=== PATIENT | female | born 1990 | race Caucasian/White ===

== ENCOUNTER 2020-09-07 14:38 | Emergency (ER) | payer MEDICAID, SELFPAY ==
[2020-09-07 14:51] VITALS: BP 117/66; PULSE 85; RESP 16; TEMP 36.9; O2SAT 99
--- NOTE | 2020-09-07 15:15 | ED.GENADULT ---
HPI - General Adult General Chief complaint: Skin/Abscess/Foreign Body Stated complaint: Allergic Reaction Time Seen by Provider: 09/07/20 15:15 Source: patient and RN notes reviewed Mode of arrival: ambulatory Limitations: no limitations History of Present Illness HPI narrative: 30 year old female who presents to [facility] care with complaints of upper and lower lips swelling since around 1115 today. Patient states that she ate a peanut butter cup about 1030 and then noticed this swelling of her lips approximately 45 minutes later. Patient denies any difficulty with breathing or any difficulty swallowing. Patient states that she is unaware of any known peanut or any other food allergies. Patient denies any other new medications, lotions, makeup, soaps or fragrance products.Patient denies any other ill symptoms or recent fevers. MD complaint: allergic reaction Onset (ago): hour(s) (1030 this morning) Location: mouth (lips) Radiation: non-radiation Severity: moderate Associated symptoms: denies other symptoms Treatments prior to arrival: none Related Data Home Medications Medication Instructions Recorded Confirmed topiramate 25 mg PO DAILY 09/07/20 09/07/20 Allergies Allergy/AdvReac Type Severity Reaction Status Date / Time nortriptyline AdvReac Abdominal Verified 09/07/20 15:05 Pain Review of Systems Review of Systems: Narrative: CONSTITUTIONAL: Denies fever, chills, or sweats. EYES: Denies visual changes, redness, or discharge. ENT: Denies rhinorrhea, congestion, sore throat, or otalgia reports swelling of lips CARDIOVASCULAR: Denies chest pain, palpitations, or edema. RESPIRATORY: Denies cough or dyspnea. GASTROINTESTINAL: Denies abdominal pain, nausea, vomiting, or diarrhea. GENITOURINARY: Denies dysuria or hematuria. SKIN: Denies rash or itching. MUSCULOSKELETAL: Denies back pain, joint pain, or myalgia. NEUROLOGIC: Denies headache, numbness, or weakness. PSYCHIATRIC: Denies anxiety or depression. All systems reviewed & are unremarkable except as noted in HPI and below PMFSH Past Medical History Medical History (Updated 09/09/20 @ 11:09 by Zuleyka Jennings NP) Migraines Surgical History Surgical History (Updated 09/09/20 @ 11:03 by Zuleyka Jennings NP) No pertinent past surgical history Social History Social History (Updated 09/09/20 @ 11:06 by Zuleyka Jennings NP) Smoking status: Never smoker Alcohol intake: unknown Substance use: unknown Living arrangements: with family Gender identity (if verbalized by the patient): Female Exam Narrative: Exam Narrative: GENERAL: Well-appearing, well-nourished, and in no acute distress. HEAD: Normocephalic, atraumatic. EYES: PERRLA and EOMI. ENT: Nares clear, no rhinorrhea or epistaxis. Mucous membranes moist.TM's normal with good light reflex, throat red no swelling noted, tonsils red and enlarged, upper and lower lips swollen on face no Antonio angina noted or any difficulty with swallowing. NECK: Supple.no lymphadenopathy CHEST: Clear to auscultation. No respiratory distress.SAO2 99% on room air HEART: Regular rate and rhythm. No murmur heard. Normal peripheral pulses. ABDOMEN: Soft, nontender, nondistended, normal active bowel sounds. EXTREMITIES: Normal range of motion. No edema. SKIN: Warm, dry, no rash. NEURO: No focal deficits. Alert and oriented x3. Course Vital Signs Vital signs: Vital Signs Temperature 36.9 C 09/07/20 14:51 Pulse Rate 85 09/07/20 14:51 Respiratory Rate 16 09/07/20 14:51 Blood Pressure 117/66 09/07/20 14:51 Pulse Oximetry 99 09/07/20 14:51 Temperature 36.9 C 09/07/20 14:51 Pulse Rate 85 09/07/20 14:51 Respiratory Rate 16 09/07/20 14:51 Blood Pressure 117/66 09/07/20 14:51 Pulse Oximetry 99 09/07/20 14:51 Medical Decision Making MDM Narrative Medical decision making narrative: Patient received Methylprednisolone 80 mg injection in clinic today with no adverse reactio
[2020-09-07] MEDS: methylPREDNISolone ACETATE 80 MG/ML VIAL IM (15:47)
== END 2020-09-07 16:13 | disposition home or self-care (01) ==
PROVIDERS: Emergency Provider Registered Nurse; PCP Internal Medicine
DX: T78.1XXA Other adverse food reactions, not elsewhere classified, initial encounter (principal)
CPT/HCPCS: 87081; 87880; 96372; 99213; G0463; J1040

== ENCOUNTER 2023-06-06 13:29 | Emergency (ER) | payer OTHER, SELFPAY ==
--- NOTE | 2023-06-06 13:41 | ED.ABDPAIN ---
HPI - Abdominal Pain General Chief Complaint: Abdominal Pain Stated Complaint: Low abdominal Pain/Right Side Time Seen by Provider: 06/06/23 13:45 Source: patient, RN notes reviewed and old records reviewed Mode of arrival: ambulatory Limitations: no limitations History of Present Illness HPI narrative: 33-year-old female presents to the [facility] with complaints of right lower back, right lower quadrant pain that has increased over the last 2 days. Denies any fevers. Does states she has been very nauseous. Denies any urinary symptoms, frequency, urgency or burning. Denies any abdominal surgeries in the past Onset (ago): day(s) (2) Pain Consistency: constant Location: RLQ Exacerbating factors: movement Relieving factors: nothing Associated symptoms: nausea Related Data Patient : No Home Medications Medication Instructions Recorded Confirmed topiramate 25 mg tablet 25 mg PO DAILY 09/07/20 09/07/20 Allergies Allergy/AdvReac Type Severity Reaction Status Date / Time Tricyclic Antidepressants Allergy Hives Verified 06/06/23 13:45 and Tricy nortriptyline AdvReac Abdominal Verified 06/06/23 13:45 Pain Review of Systems Review of Systems: All systems reviewed & are unremarkable except as noted in HPI and below Constitutional: Constitutional: Reports no additional constitutional complaints Eyes: Eyes: Reports no additional eye complaints ENT: Reports system reviewed and no additional complaints, except as documented Cardiovascular: Cardiovascular: Reports no additional cardiovascular complaints, Denies chest pain and Denies dyspnea Respiratory: Respiratory: Reports no additional respiratory complaints, Denies chest congestion, Denies cough and Denies dyspnea Gastrointestinal: Gastrointestinal: Reports as per HPI, Reports abdominal pain (Right lower quadrant), Denies nausea and Denies vomiting Musculoskeletal: Musculoskeletal: Reports no additional musculoskeletal complaints Integumentary/Breasts: Skin/Breast: Reports system reviewed and no additional complaints, except as docu Neurologic: Reports system reviewed and no additional complaints, except as documented Psychiatric: Psychiatric: Reports no additional psychiatric complaints Allergic/Immunologic: Allergic/Immunologic: Reports no additional allergic/immunologic complaints PMFSH Past Medical History Medical History Migraines Surgical History Surgical History No pertinent past surgical history Social History Social History (Reviewed 06/06/23 @ 13:59 by MICKY Alvarez Smoking status: Never smoker Alcohol intake: unknown Substance use: unknown Living arrangements: with family Gender identity (if verbalized by the patient): Female Comments At the time of my signature, I reviewed and agree with the nursing past medical, surgical, social, and family history. There is no relevant family history pertinent to the patient complaint. Exam Const: General: cooperative, healthy appearing, comfortable, no acute distress, well developed, alert and well nourished Nutritional Appearance: well nourished Orientation/consciousness: patient oriented x3 Limitations: no limitations HENMT: Head: normal to inspection Ears: hearing grossly normal bilaterally and external ears normal Face/Nose/Sinus: Normal external nose present, Normal nares present, Normal nasal mucous membranes and turbinates present and normal facial exam Face and sinus: normal facial exam Eyes: General: appearance normal, both eyes and all related structures Alignment and Position: alignment normal Periorbital: periorbital findings normal Pupils: Equal, round and reactive pupils present EOM: EOMs intact bilaterally Neck: Neck: normal visual inspection, full ROM, no lymphadenopathy and no meningeal signs Chest: Chest palpation & inspection: lary
[2023-06-06 13:45] VITALS: BP 126/81; PULSE 86; RESP 16; TEMP 36.5; O2SAT 100
== END 2023-06-06 13:59 | disposition short-term general hospital (02) ==
PROVIDERS: Emergency Provider Nurse Practitioner
DX: R10.31 Right lower quadrant pain (principal)
CPT/HCPCS: 81003; 87086; 99213; G0463

== ENCOUNTER 2023-06-06 14:26 | Emergency (ER) | payer OTHER, SELFPAY ==
--- NOTE | ~2023-06-06 | CT_ITS ---
EXAMINATION: CT abdomen pelvis wo con DATE: 06/06/2023 17:31 INDICATION: Right lower quadrant pain TECHNIQUE: Computed tomography (CT) of the abdomen and pelvis was performed without intravenous contr ast. The dose-length product was 454.86 mGy-cm. Automated exposure control and iterative reconstructi on technique were employed. COMPARISON: None. FINDINGS: Lung bases are unremarkable. Heart size normal. No significant pleural or pericardial effus ion. No significant vascular abnormality. No lymphadenopathy. Normal-appearing appendix. The liver, s pleen, pancreas, adrenal glands and kidneys are unremarkable for noncontrast CT. Gallbladder is prese nt. No renal stones or hydronephrosis. Uterus appears enlarged. No abnormal pelvic masses or fluid co llections. Nonobstructive bowel pattern. No free air or free fluid. No evidence for diverticulitis. IMPRESSION: 1. No acute abdominal abnormality. Reviewed, dictated and finalized at location A.
[2023-06-06 14:29] VITALS: BP 139/73; PULSE 70; RESP 16; TEMP 36.3; O2SAT 100
[2023-06-06 14:47] LABS: Basophils Absolute Auto 0.1 K/mm3 (0.0-0.1); Basophils Percent Auto 0.7 % (0.2-1.2); Eosinophils Absolute Auto 0.3 K/mm3 (0-0.3); Eosinophils Percent Auto 3.2 % (0-4.4); Hematocrit 41.2 % (37.0-47.0); Hemoglobin 13.9 g/dL (12.0-15.0); Immature Granulocyte Absolute 0.02 K/mm3 (0.00-0.031); Immature Granulocyte Percent A 0.2 % (0-0.5); Lymphocytes Absolute Auto 2.73 K/mm3 (0.9-3.2); Lymphocytes Percent Auto 32.7 % (18.3-44.2); Mean Corpuscular HGB Conc 33.7 g/dl (32-36); Mean Corpuscular Hemoglobin 30.9 pg (26-34); Mean Corpuscular Volume 91.6 fl (80-100); Mean Platelet Volume 9.2 fl (7.4-10.4); Monocytes Absolute Auto 0.9 K/mm3 (0.1-0.6); Monocytes Percent Auto 11.2 % (2.6-8.5); Neutrophils Absolute Auto 4.3 K/mm3 (1.3-6.7); Platelet Count Result 314 k/mm3 (150-375); Red Cell Distribution Width 12.6 % (11.5-14.5); White Blood Count 8.3 K/mm3 (4.5-10.0)
[2023-06-06 14:52] LABS: Appearance Urine Turbid (Clear); Bacteria Urine 1+ /hpf; Bilirubin Urine Negative (Negative); Blood Urine Trace (Negative); Color Urine Yellow (Yellow); Glucose Urine UA Negative (Negative); Ketones Urine Negative (Negative); Leukocyte Esterase Ur Negative LEU/UL (Negative); Nitrate Urine Negative (Negative); Non Pathogenic Casts 0-2; Protein Urine Negative (Negative); RBC Urine 0-2 /hpf (0-2); Specific Grav Ur 1.015 (1.001-1.035); Squamous Epithelial Cell Urine Many /hpf (Few); Urobilinogen Urine 0.2 mg/dL (<2.0); pH Urine 5.5 (5.0-9.0)
[2023-06-06 14:56] LABS: Add Urine Microscopic? YES
[2023-06-06 14:57] LABS: Alanine Aminotransferase 17 U/L (6-35); Albumin Level 4.6 g/dL (3.5-5.1); Alkaline Phosphatase 58 U/L (38-126); Anion Gap 9 mmol/L (8-16); Aspartate Amino Transferase 22 U/L (14-36); Bilirubin,Total 0.5 mg/dL (0.2-1.3); Blood Urea Nitrogen 11 mg/dL (7-17); Carbon Dioxide 24 mmol/L (22-30); Chloride 104 mmol/L (98-107); Estimated CRCL calculation 89 ml/min; Estimated Glomerular Filt Rate > 60; Glucose 85 mg/dL (65-110); Lipase 36 U/L (23-300); Sodium 137 mmol/L (137-145)
[2023-06-06 15:04] VITALS: BP 139/73; PULSE 70; RESP 16; TEMP 36.3; O2SAT 100
--- NOTE | 2023-06-06 16:15 | ED.ABDPAIN ---
HPI - Abdominal Pain General Chief Complaint: Abdominal Pain Stated Complaint: Right lower quadrant pain Time Seen by Provider: 06/06/23 16:10 History of Present Illness HPI narrative: Patient is a 33-year-old female presenting with abdominal pain. Patient states that for the last 2 days she has had right flank pain that radiates into her right lower abdomen. Reports nausea but no vomiting. She went to urgent care earlier and urinalysis was normal so she was advised to come here for further evaluation. Denies fevers or chills, chest pain, shortness of breath, hematuria, dysuria. States that she is due to start her menstrual cycle next week. Related Data Home Medications Medication Instructions Recorded Confirmed topiramate 25 mg tablet 25 mg PO DAILY 09/07/20 09/07/20 Allergies Allergy/AdvReac Type Severity Reaction Status Date / Time Tricyclic Antidepressants Allergy Hives Verified 06/06/23 16:12 and Tricy nortriptyline AdvReac Abdominal Verified 06/06/23 16:12 Pain Review of Systems Review of Systems: All systems reviewed & are unremarkable except as noted in HPI and below PMFSH Past Medical History Medical History Migraines Surgical History Surgical History No pertinent past surgical history Social History Social History Smoking status: Never smoker Alcohol intake: unknown Substance use: unknown Living arrangements: with family Gender identity (if verbalized by the patient): Female Exam Narrative: GENERAL: Well-appearing, well-nourished, and in no acute distress. Pleasant and cooperative HEAD: Normocephalic, atraumatic. EYES: PERRLA and EOMI. ENT: Nares clear, no rhinorrhea or epistaxis. Mucous membranes moist. NECK: Supple. CHEST: Clear to auscultation. No respiratory distress. HEART: Regular rate and rhythm ABDOMEN: Soft, +RLQ tenderness, +R CVA tenderness, no guarding or rebound EXTREMITIES: Normal range of motion. No edema. SKIN: Warm, dry, no rash. NEURO: No focal deficits. Alert and oriented x3. PSYCH: Normal mood and affect. Course Vital Signs Vital signs: Vital Signs Temperature 97.4 F L 06/06/23 14:29 Pulse Rate 70 06/06/23 14:29 Respiratory Rate 16 06/06/23 14:29 Blood Pressure 139/73 06/06/23 14:29 Pulse Oximetry 100 06/06/23 14:29 Oxygen Delivery Room Air 06/06/23 14:29 Temperature 97.4 F L 06/06/23 15:04 Pulse Rate 65 06/06/23 18:18 Respiratory Rate 18 06/06/23 18:18 Blood Pressure 106/60 06/06/23 18:18 Pulse Oximetry 100 06/06/23 18:18 Oxygen Delivery Room Air 06/06/23 15:04 MDM - Abdominal Pain MDM Narrative Medical decision making narrative: Patient is a 33-year-old female presenting with right-sided abdominal pain for several days. Vitals within normal limits. Exam remarkable for the above. She declines analgesia or antiemetics at this time. Plan for blood work, CT abdomen pelvis. Blood work is unremarkable. No leukocytosis. Normal hemoglobin. Normal renal function and electrolytes. Lipase is unremarkable. UA is contaminated. CT abdomen pelvis shows no acute abnormalities. Normal appendix and gallbladder. No abnormal adnexal masses. They do note her uterus is enlarged, patient states that she is due for her menstrual cycle soon, suspect is related to this. Discussed the reassuring work-up with the patient. States that she continues to be in pain. Again offered pain medications which she declines. 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 Appropriate return precautions given. Patient discharged in stable condition. Differential Diagnosis Differential diagnosis: Likely abdominal pain, acute appendicitis, constipation, diverticulitis, pancreatitis and small bowel obstruction Medical Records Attestation:
[2023-06-06 16:19] VITALS: BP 109/81; PULSE 65; RESP 18; O2SAT 100
[2023-06-06 18:18] VITALS: BP 106/60; PULSE 65; RESP 18; O2SAT 100
== END 2023-06-06 18:40 | disposition home or self-care (01) ==
PROVIDERS: Emergency Medicine; Emergency Provider Emergency Medicine
DX: R10.31 Right lower quadrant pain (principal)
CPT/HCPCS: 36415; 74176; 80053; 81001; 81003; 81025; 83690; 85025; 87086; 99284

== ENCOUNTER 2023-11-28 14:54 | Emergency (ER) | payer OTHER, SELFPAY ==
--- NOTE | 2023-11-28 14:57 | ED.URI ---
HPI - URI/Sore Throat General Chief Complaint: Upper Respiratory Infection Stated Complaint: Cough Time Seen by Provider: 11/28/23 15:06 Source: patient and RN notes reviewed Mode of arrival: ambulatory Limitations: no limitations History of Present Illness HPI Narrative: 33-year-old female presents with concern for 2 week history of nasal congestion, cough. Reports he has been taking DayQuil and NyQuil without relief. Denies fever, aches, chills, sweats. MD elicited complaint: cough and nasal congestion Related Data Allergies Allergy/AdvReac Type Severity Reaction Status Date / Time Tricyclic Antidepressants Allergy Severe Anaphylaxis Verified 11/28/23 15:11 and Tricy nortriptyline AdvReac Intermediate Abdominal Verified 11/28/23 15:11 Pain Review of Systems Review of Systems: CONSTITUTIONAL: Denies malaise, chills, sweats, or fever. EYES: Denies visual changes, redness, or discharge. ENT: Reports rhinorrhea, congestion, sinus pain CARDIOVASCULAR: Denies chest pain, palpitations, or edema. RESPIRATORY: Reports cough. Denies dyspnea. GASTROINTESTINAL: Denies abdominal pain, nausea, vomiting, diarrhea SKIN: Denies rash or itching. MUSCULOSKELETAL: Denies myalgia. NEUROLOGIC: Denies headache. All systems reviewed & are unremarkable except as noted in HPI and below PMFSH Past Medical History Medical History Migraines Surgical History Surgical History No pertinent past surgical history Social History Social History Smoking status: Never smoker Alcohol intake: unknown Substance use: unknown Living arrangements: with family Gender identity (if verbalized by the patient): Female Comments At time of signature, agree with nursing past medical, surgical, social and family history. There is no relevant family history pertinent to the presenting complaint Exam Narrative: GENERAL: Well-appearing, well-nourished, and in no acute distress. HEAD: Normocephalic EYES: PERRLA, conjunctivae clear ENT: Nares clear, turbinates edematous and erythematous, clear discharge. Mucous membranes moist. TM pearly verduzco with dull light reflex bilaterally; no tragal tenderness. Oropharynx not erythematous without lesions. Tonsils not enlarged and without exudate, no drooling, no hoarseness, no trismus, uvula midline. NECK: Supple. No lymphadenopathy CHEST: Clear to auscultation, breath sounds equal. No wheezing, rhonchi, rales, or stridor. No respiratory distress, speaks in full sentences. HEART: Regular rate and rhythm. No murmur heard. SKIN: Warm, dry, no rash. NEURO: Alert and oriented x3. PSYCH: Normal mood and affect Course Course Emergency Course: Patient is aware of diagnosis, understands and agrees to treatment plan. Anticipatory guidance given. Patient agrees to follow-up as directed and is aware of reasons to seek care at the emergency department. Portions of this record may have been created with voice recognition software Level of Care: Express Care Visit Vital Signs Vital signs: Reviewed. MDM - URI/Sore Throat MDM Narrative Medical decision making narrative: Differential diagnosis considered: Paredes virus, strep pharyngitis, allergic rhinitis, upper respiratory tract infection, sinusitis, rhinosinusitis, nasopharyngitis. viral pharyngitis, otitis media, otitis externa, pneumonia, bronchitis, viral cough syndrome, viral syndrome, and influenza. Exam findings show no acute concerns or changes; patient is non-toxic appearing and is in no distress. Patient is appropriate for outpatient treatment and follow-up. Lab Data Attestation: I reviewed the patient's lab results. Critical Care Time Critical Care Time Critical Care Time: No Discharge Plan Discharge Clinical Impression: Sinobronchitis Patient Disposition: Home, S
[2023-11-28 15:00] VITALS: BP 110/60; PULSE 64; RESP 16; TEMP 36.9; O2SAT 100
== END 2023-11-28 15:20 | disposition home or self-care (01) ==
PROVIDERS: Emergency Provider Nurse Practitioner
DX: J32.9 Chronic sinusitis, unspecified (principal); J40 Bronchitis, not specified as acute or chronic
CPT/HCPCS: 99213; G0463